=== PATIENT | male | born 1970 | race Caucasian/White ===

== ENCOUNTER → 2016-09-22 | Outpatient (CLI) | payer BC ==
[~2016-09-22] MED LIST: PRINIVIL20 M1 PO
--- NOTE | ~2016-09-22 | ST ---
Unit #: [id number] #: [id number] Patient: EVANGELISTA MCKINLEY [id number] [address] [address] [id number] O MR#: [id number] NAME: EVANGELISTA MCKINLEY : 1970 SEX: M STUDY DATE/TIME: 09/22/2016 UNIT: [facility] ROOM: STUDY DESCRIPTION: Stress Test Attending Physician: Parth Orozco M.D. Referring Physician: Parth Orozco M.D. Primary Care Physician: Bennett Hilton M.D. CARDIOLOGY REPORT EXAM EKG Portion of an Exercise Cardiolite Stress Test REASON FOR EXAM Chest pain with history of hypertension, hyperlipidemia and tobacco abuse. DISCUSSION Baseline EKG reveals sinus rhythm with a ventricular rate of 64 beats per minute. Nonspecific ST-T wave changes noted. Poor R wave progression in the anterior leads. The patient exercised on the treadmill according to Dean protocol for 11 minutes 24 seconds achieving a workload of 13.40 METs. Maximal heart rate is 151 beats per minute which represents 85% of the maximal age predicted heart rate. Maximal blood pressure was 222/100 mmHg at the end of exercise. There were no complaints of chest pain. There were no sustained arrhythmias noted. There were no ST or T wave changes to suggest ischemia. The patient's blood pressure improved in recovery. The test was stopped due to protocol completion. IMPRESSION 1. Negative EKG portion of exercise Cardiolite stress test. 2. There were no complaints of chest pain. 3. There were no sustained arrhythmias noted. 4. There were no ST or T wave changes to suggest ischemia. 5. Patient's blood pressure was elevated but improved in recovery. Dictated by... Svitlana Triana APRN for Kaden Dahl/guy TD: 09/23/2016 09:36 JOB #: [id number] Unit #: [id number] #: [id number] Patient: EVANGELISTA MCKINLEY CARDIOLOGY REPORT Page 1 of 1 X CARDIOLOGY REPORT
--- NOTE | ~2016-09-22 | TH ---
Unit #: [id number] #: [id number] Patient: EVANGELISTA MCKINLEY [id number] [address] [address] [id number] O MR#: [id number] NAME: EVANGELISTA MCKINLEY : 1970 SEX: M STUDY DATE/TIME: 09/22/2016 UNIT: [facility] ROOM: STUDY DESCRIPTION: Attending Physician: Parth Orozco M.D. Referring Physician: Parth Orozco M.D. Primary Care Physician: Bennett Hilton M.D. CARDIOLOGY REPORT EXAM Exercise Cardiolite stress test, nuclear portion. PROCEDURE Using technetium 99m labeled Cardiolite, rest and stress SPECT images were obtained. Multiple SPECT images were obtained in various views including horizontal and vertical long axis and short axis views of the left ventricle. Images were obtained by gated SPECT method. The patient was administered 11 mCi of Cardiolite at rest. The patient was administered 29.5 mCi of Cardiolite at peak exercise. Total exercise time is 11 minutes and 24 seconds. On the stress images, there is normal perfusion noted. The rest images show normal perfusion. Comparing rest and stress images, there is no stress-induced ischemia noted. The left ventricular ejection fraction is calculated to be 67%. There is no focal wall motion abnormality seen. CONCLUSION 1. No stress-induced ischemia noted. 2. The left ventricular ejection fraction is calculated to be 67%. 3. There is no focal wall motion abnormality seen. 4. Normal exercise Cardiolite stress test. Dictated by... Kaden Dahl TD: 09/22/2016 16:22 JOB #: [id number] CARDIOLOGY REPORT Page 1 of 1 X Rose Redman MD <ELECTRONICALLY SIGNED> 10/28/16 1524 CARDIOLOGY REPORT
== END | disposition home or self-care (01) ==
LOC: CNUC 08:29
DX: R07.9 Chest pain, unspecified (principal); R53.83 Other fatigue; I10 Essential (primary) hypertension
CPT/HCPCS: 78452; 93017; A9500